=== PATIENT | female | born 1970 | race Caucasian/White ===

== ENCOUNTER 2023-04-25 10:03 | Inpatient (IN) | payer MEDICARE, OTHER ==
[~2023-04-25] VITALS: Ht 170.2 cm; Wt 79.1 kg
[2023-04-25] MEDS ORDERED: MIRTAZAPINE7.5 MG PO (12:26)
[2023-04-25] MEDS ORDERED: ZONISAMIDE50 MG PO (12:26)
[2023-04-25] MEDS ORDERED: PROMETHAZINE HC25 M1 PO (12:26)
[2023-04-25] MEDS ORDERED: CLONIDINE HCL0.1 MG PO (12:26)
[2023-04-25] MEDS ORDERED: BUTALBITAL-ACE1 EACH PO (12:27)
[2023-04-25 12:32] LABS: BASOPHILS 0.7 % (0-2); EOSINOPHILS 1.5 % (0-6); HEMATOCRIT 37.3 % (35.0-50.0); HEMOGLOBIN 12.4 g/dL (12.0-18.0); MCH 30.4 (27-36); MCHC 33.4 g/dl (30-36); MONOCYTES 4.9 % (0-12); NEUTROPHILS 61.9 % (39-80); PLATELET COUNT 388 K/uL (140-440); RDW 13.5 (10.5-15.0)
[2023-04-25 12:46] LABS: ALBUMIN 3.5 g/dL (3.4-5.0); ALBUMIN/GLOBULIN RATIO 0.88 (1.1-2.4); ANION GAP 14.9 (7-21); BILIRUBIN, TOTAL 0.4 ng/dL (0.2-1.0); BUN/CREATININE RATIO 15.71 (6.0-28.6); CALCIUM 9.8 mg/dL (8.5-10.1); CREATININE, SERUM 0.7 mg/dL (0.55-1.02); POTASSIUM 3.9 mmol/L (3.5-5.1); PROTEIN, TOTAL 7.5 g/dL (6.4-8.2)
[2023-04-25 15:51] VITALS: BP 113/65
[2023-04-25] MEDS ORDERED: BIOTIN5 MG PO (17:13)
[2023-04-25] MEDS ORDERED: VITAMIN D325 MCG PO (17:13)
[2023-04-25] MEDS ORDERED: FISH OIL 1,0001 EAC6 PO (17:14)
[2023-04-25 17:50] LABS: BILIRUBIN, URINE NEGATIVE (negative); BLOOD/HGB, URINE NEGATIVE (Negative); KETONE, URINE NEGATIVE (Negative); LEUK ESTERASE, URINE NEGATIVE (negative); NITRITE, URINE NEGATIVE (negative); PH, URINE 5.5 (5-7)
[2023-04-25 21:16] VITALS: BP 101/62
[2023-04-26 02:02] VITALS: BP 99/55
[2023-04-26 05:20] VITALS: BP 98/54
[2023-04-26 05:22] LABS: BASOPHILS 1.1 % (0-2); EOSINOPHILS 2.8 % (0-6); HEMATOCRIT 31.1 % (35.0-50.0); HEMOGLOBIN 10.7 g/dL (12.0-18.0); LYMPHOCYTES 36.7 % (24-44); MCH 31.1 (27-36); MCHC 34.6 g/dl (30-36); MONOCYTES 6.5 % (0-12); NEUTROPHILS 52.9 % (39-80); PLATELET COUNT 290 K/uL (140-440); RBC 3.46 M/ul (4.3-5.7); RDW 13.3 (10.5-15.0)
[2023-04-26 05:35] LABS: ANION GAP 10.1 (7-21); BUN/CREATININE RATIO 13.51 (6.0-28.6); CREATININE, SERUM 0.74 mg/dL (0.55-1.02); POTASSIUM 4.1 mmol/L (3.5-5.1)
[2023-04-26 09:27] VITALS: BP 104/68
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
[2023-04-26 13:22] VITALS: BP 96/53
[2023-04-26 17:35] VITALS: BP 109/68
[2023-04-26 19:49] VITALS: BP 111/65
[2023-04-27 05:15] LABS: BASOPHILS 1.5 % (0-2); EOSINOPHILS 2.8 % (0-6); HEMATOCRIT 30.3 % (35.0-50.0); HEMOGLOBIN 10.5 g/dL (12.0-18.0); LYMPHOCYTES 37.3 % (24-44); MCH 30.5 (27-36); MCHC 34.5 g/dl (30-36); MCV 88.3 fl (81-99); MONOCYTES 6.3 % (0-12); NEUTROPHILS 52.1 % (39-80); PLATELET COUNT 316 K/uL (140-440); RBC 3.43 M/ul (4.3-5.7)
[2023-04-27 06:17] VITALS: BP 117/68
[2023-04-27 10:06] VITALS: BP 105/65
[2023-04-27 14:37] VITALS: BP 103/61
[2023-04-27 18:24] VITALS: BP 117/61
[2023-04-27 19:59] VITALS: BP 115/63
[2023-04-28 05:48] VITALS: BP 124/78
[2023-04-28 08:11] VITALS: BP 117/75
[2023-04-28 09:38] VITALS: BP 111/69
[2023-04-28 09:56] LABS: BASOPHILS 1.1 % (0-2); EOSINOPHILS 3.1 % (0-6); HEMATOCRIT 33.2 % (35.0-50.0); HEMOGLOBIN 11.1 g/dL (12.0-18.0); LYMPHOCYTES 42.3 % (24-44); MCH 30.3 (27-36); MCHC 33.3 g/dl (30-36); MCV 90.9 fl (81-99); NEUTROPHILS 46.5 % (39-80); PLATELET COUNT 360 K/uL (140-440); RBC 3.65 M/ul (4.3-5.7)
[2023-04-28 10:18] LABS: ALBUMIN 2.9 g/dL (3.4-5.0); ALBUMIN/GLOBULIN RATIO 0.94 (1.1-2.4); ANION GAP 9.9 (7-21); BILIRUBIN, TOTAL 0.1 ng/dL (0.2-1.0); BUN/CREATININE RATIO 13.23 (6.0-28.6); CALCIUM 9.1 mg/dL (8.5-10.1); CREATININE, SERUM 0.68 mg/dL (0.55-1.02); MAGNESIUM 1.9 mg/dL (1.8-2.4); POTASSIUM 3.9 mmol/L (3.5-5.1)
[2023-04-28 13:44] VITALS: BP 102/66
--- NOTE | 2023-04-28 17:10 | EKG ---
[facility] [address] [facility] [place] [address] Signed Marked sinus bradycardia Abnormal ECG No previous ECGs available Confirmed by Erma Pathak MD () on 04/28/2023 5:10:05 PM Electronically Signed By: ERMA PATHAK MD 04/28/23 1710 PATIENT NAME: GAMAL ALLANTCHERSHELDON Electrocardiogram DATE OF : [birth year] PHYSICIAN: ERMA PATHAK MD REPORT #: [id number] REPORT IS CONFIDENTIAL AND NOT TO BE RELEASED WITHOUT AUTHORIZATION
[2023-04-28 17:56] VITALS: BP 121/73
--- NOTE | 2023-04-28 21:09 | EKG ---
[facility] [address] [facility] [place] [address] Signed Marked sinus bradycardia Abnormal ECG When compared with ECG of 28-APR-2023 07:52, No significant change was found Confirmed by Erma Pathak MD () on 04/28/2023 9:09:28 PM Electronically Signed By: ERMA PATHAK MD 04/28/232108 PATIENT NAME: SHELDON READ Electrocardiogram DATE OF : 68 PHYSICIAN: ERMA PATHAK MD REPORT #: [id number] REPORT IS CONFIDENTIAL AND NOT TO BE RELEASED WITHOUT AUTHORIZATION
[2023-04-28 22:13] VITALS: BP 115/78
[2023-04-29 06:03] VITALS: BP 120/65
[2023-04-29 09:30] VITALS: BP 116/72
[2023-04-29 13:23] VITALS: BP 119/68
[2023-04-29 17:55] VITALS: BP 108/63
[2023-04-29 20:04] VITALS: BP 111/68
[2023-04-30 05:47] VITALS: BP 135/69
[2023-04-30 09:10] VITALS: BP 117/74
[2023-04-30 14:29] VITALS: BP 125/88
[2023-04-30 18:20] VITALS: BP 116/81
[2023-04-30 20:15] VITALS: BP 111/71
[2023-05-01 06:27] VITALS: BP 125/77
[2023-05-01 08:53] VITALS: BP 123/74
[2023-05-01 09:40] VITALS: BP 116/75
[2023-05-01] MEDS ORDERED: LEVOFLOXACIN500 MG PO (12:49)
[2023-05-01] MEDS ORDERED: METRONIDAZOLE250 MG PO (12:50)
[2023-05-01] MEDS ORDERED: ACETAMINOPHEN500 MG PO (12:50)
[2023-05-01 13:30] VITALS: BP 102/70
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
== END 2023-05-01 14:50 | disposition home or self-care (01) | DRG 392 ==
LOC: ED 10:03 → MS 14:38
PROVIDERS: Emergency Medicine; ADMIT Surgery; ATTEND Surgery
DX: K57.20 Diverticulitis of large intestine with perforation and abscess without bleeding (principal); I10 Essential (primary) hypertension; G43.909 Migraine, unspecified, not intractable, without status migrainosus; R00.1 Bradycardia, unspecified; I95.9 Hypotension, unspecified; K44.9 Diaphragmatic hernia without obstruction or gangrene; G89.4 Chronic pain syndrome; Z87.820 Personal history of traumatic brain injury; Z87.19 Personal history of other diseases of the digestive system; Z98.51 Tubal ligation status; Z88.8 Allergy status to other drugs, medicaments and biological substances; Z88.2 Allergy status to sulfonamides; Z88.0 Allergy status to penicillin; Z79.899 Other long term (current) drug therapy; Z98.890 Other specified postprocedural states; Z11.52 Encounter for screening for COVID-19
CPT/HCPCS: 36415; 74177; 80048; 80053; 81003; 83605; 83735; 84484; 85025; 93005; 93010; A9270; C9803; J1170; J1885; J1956; J2270; J2405; J7121; Q9967; U0002

== ENCOUNTER 2023-08-20 05:44 | Day surgery (SDC) | payer MEDICARE, OTHER ==
[2023-08-14 11:39] VITALS: BP 123/66
[~2023-08-20] VITALS: Ht 170.2 cm; Wt 79.5 kg
[~2023-08-20 05:44] MED LIST: ACETAMINOPHEN500 MG PO; BIOTIN5 MG PO; BUTALBITAL-ACE1 EACH PO; CLONIDINE HCL0.1 MG PO; FISH OIL 1,0001 EAC6 PO; LEVOFLOXACIN500 MG PO; METRONIDAZOLE250 MG PO; MIDAZOLAM HCL 5 MG/5 ML VIAL IV PRN; MIRTAZAPINE7.5 MG PO; PROMETHAZINE HC25 M1 PO; VITAMIN D325 MCG PO; ZONISAMIDE50 MG PO; fentaNYL citrate 100 MCG/2 ML VIAL IV PRN
[2023-08-20 05:57] VITALS: BP 105/54
[2023-08-20] MEDS ORDERED: LIDOCAINE HCL 1% 5 ML SDV INJ ONE (07:00)
[2023-08-20] MEDS ORDERED: IBLOOD GLUCOSE TEST STRIP 1 EA TEST VI PRN (07:00)
[2023-08-20] MEDS ORDERED: LACTATED RINGER'S 1,000 ML IV SCH (07:00)
[2023-08-20] MEDS ORDERED: LIDOCAINE HCL 2% 5 ML SDV ONE (07:19)
[2023-08-20] MEDS ORDERED: propofoL 200 MG/20 ML VIAL ONE (07:19)
[2023-08-20] MEDS ORDERED: CEFAZOLIN SOD 1,000 MG/10 ML VIAL ONE (07:27)
--- NOTE | 2023-08-20 08:10 | NUR ---
08/20/23 0810 Nell Mondragon PT TO PACU SLEEPY BUT AROUSABLE, DENIES PAIN AND NAUSEA.
[2023-08-20 08:33] VITALS: BP 110/74
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
--- NOTE | 2023-08-24 11:56 | PATH ---
[facility] [address] [place], [place] [address] Signed SPECIMEN(S): A RECTAL POLYP AT 6 CM SPECIMEN(S): B SIGMOID POLYP AT 32 CM SPECIMEN SOURCE: A. RECTAL POLYP AT 6 CM B. SIGMOID POLYP AT 32 CM CLINICAL HISTORY: Diverticulosis; Hx of polyps FINAL PATHOLOGIC DIAGNOSIS: A. Rectum, 6 cm, polypectomy: - Hyperplastic polyp B. Colon, sigmoid at 32 cm, polypectomy: - Inflammatory-type polyp BRP MICROSCOPIC EXAMINATION: Histologic sections of all submitted blocks are examined by light microscopy. These findings, together with the gross examination, support the pathologic diagnosis. GROSS DESCRIPTION: A. The specimen, labeled and designated "Moon Mckay, rectal polyp at 6 cm," is received in formalin and consists of one chapa soft tissue fragment, 0.1 cm. Entirely submitted in (A1). B. The specimen, labeled and designated "Moon Mckay, sigmoid colon polyp at 42 cm," is received in formalin and consists of one chapa soft tissue fragment, 0.1 cm. Entirely submitted in (B1). JS (under the direct supervision of a pathologist) The Gross Description was prepared using a voice recognition system. The report was reviewed for accuracy; however, sound-alike word errors, addition and/or deletions may occur. If there is any question about this report, please contact Client Services. ADDITIONAL NOTES: Immunohistochemical and/or in situ hybridization studies if performed in this case included appropriate positive controls that reacted as expected. This test was developed and its performance characteristics determined by [facility]. It has not been cleared or approved by the U.S. Food and Drug Administration. The FDA has determined that PATIENT NAME: SHELDON READ PATHOLOGY DATE OF : 68 REPORT #: [id number] PHYSICIAN: DEEPIKA MASSEY PCP: JACQUELINE PETERSON PA-C REPORT IS CONFIDENTIAL AND NOT TO BE RELEASED WITHOUT AUTHORIZATION [facility] [address] [place], [place] [address] Signed such clearance or approval is not necessary. This test is used for clinical purposes. It should not be regarded as investigational or for research. [facility] is certified under the Clinical Laboratory Improvement Amendments of 1988 (CLIA) as qualified to perform high complexity clinical laboratory testing. PERFORMING LABORATORY: Technical component was performed by [facility], [address] [place] [address] (CLIA# [id number]). Professional interpretation was performed by [facility] - [address] [id number] Diagnostician: Amrit Harley MD Pathologist Electronically Signed 08/24/2023 Copies: ~ PATIENT NAME: SHELDON READ PATHOLOGY DATE OF : [birth year] REPORT #: [id number] PHYSICIAN: DEEPIKA MASSEY PCP: JACQUELINE PETERSON PA-C REPORT IS CONFIDENTIAL AND NOT TO BE RELEASED WITHOUT AUTHORIZATION
== END 2023-08-20 08:45 | disposition home or self-care (01) ==
LOC: DS 05:44
PROVIDERS: ATTEND Colon & Rectal Surgery
PROC: 0DBN8ZZ Excision of Sigmoid Colon, Via Natural or Artificial Opening Endoscopic (ICD-10-PCS; 2023-08-20)
PROC: 0DBP8ZZ Excision of Rectum, Via Natural or Artificial Opening Endoscopic (ICD-10-PCS; principal; 2023-08-20 07:30)
DX: K63.5 Polyp of colon (principal); K57.30 Diverticulosis of large intestine without perforation or abscess without bleeding; K62.1 Rectal polyp; K64.8 Other hemorrhoids
CPT/HCPCS: 00811; J0690; J2001; J2704; J7121

== ENCOUNTER 2024-06-07 07:26 | Day surgery (SDC) | payer MEDICARE, OTHER ==
[~2024-06-07] VITALS: Ht 165.1 cm; Wt 82.7 kg
[~2024-06-07 07:26] MED LIST changes: +IBLOOD GLUCOSE TEST STRIP 1 EA TEST VI PRN; +LACTATED RINGER'S 1,000 ML IV SCH; +LIDOCAINE HCL 1% 5 ML SDV INJ ONE; +LIDOCAINE HCL 4% 50 ML BTL TOP SCH
[2024-06-07 07:40] VITALS: BP 111/70
[2024-06-07] MEDS ORDERED: OMEPRAZOLE20 MG PO (07:44)
[2024-06-07] MEDS ORDERED: fentaNYL citrate 100 MCG/2 ML VIAL ONE (08:23)
[2024-06-07] MEDS ORDERED: MIDAZOLAM HCL 5 MG/5 ML VIAL ONE (08:23)
--- NOTE | 2024-06-07 09:59 | NUR ---
06/07/24 0959 Brea Mike 0915 PT ARRIVED IN PACU SLEEPY. 0932 DR AT BEDSIDE. ALL QUESTIONS ANSWERED. 0945 SLEEPING. REU. [id number] SITTING UP IN BED SIPPING ON WATER. NO C/O'S. DC INSTRUCTIONS GIVEN.
[2024-06-07 10:02] VITALS: BP 104/72
--- NOTE | 2024-06-07 18:17 | OR ---
[facility] [address], [place] [address] Signed DATE OF OPERATION: 06/07/2024 SURGEON: Savannah De Oliveira MD PREOPERATIVE DIAGNOSIS: Persistent upper abdominal pain (known history of diverticular disease), currently asymptomatic. POSTOPERATIVE DIAGNOSES: 1. Ulcerative distal esophagitis without associated hiatal hernia. 2. Bile within stomach. PROCEDURE: Esophagogastroduodenoscopy with biopsy. ANESTHESIA: Intravenous sedation; fentanyl 100 mcg and Versed 4 mg. INDICATION: This 53-year-old white woman is a patient of KIRTI Amado. She is known to have diverticular disease and has had colonoscopy with polypectomy by Dr. Abelino Don in the past. She has had persistent abdominal pain despite taking omeprazole 20 mg daily. She is admitted at this time to undergo upper endoscopy to better characterize this problem. She understands the risk of bleeding, infection, and perforation. FINDINGS: Surprisingly significant distal esophageal inflammation was noted including some ulceration. Strangely, there was no evidence of hiatal hernia or dysfunction of the flap valve. There was some bile within the stomach and a small gastric polyp or two, one of which was excised. CLOtest was negative 15 minutes postprocedure. The duodenum appeared normal. PROCEDURE IN DETAIL: The patient was brought to the endoscopy suite and given topical lidocaine hypopharyngeal anesthesia and placed in the lateral decubitus position. She was given intravenous sedation to the point of slurred speech and nystagmus. A bite block was placed. Full cardiopulmonary monitoring was maintained. An Olympus video upper endoscope was passed in the hypopharynx. The vocal cords appeared normal. Scope was easily passed in the esophagus. The esophagus was normal except in the distal portion where there was an inflammatory exudate and distal esophagitis far more significant than Electronically Signed By: SAVANNAH DE OLIVEIRA MD 06/07/24 1817 PATIENT NAME: SHELDON READ OPERATIVE REPORT DATE OF : 68 REPORT #: [id number] PHYSICIAN: SAVANNAH DE OLIVEIRA MD PCP: RHINA GONZALEZ PA-C REPORT IS CONFIDENTIAL AND NOT TO BE RELEASED WITHOUT AUTHORIZATION [facility] [address], [place] [address] Signed what have been expected. There is no actual stricture or Pina's epithelium. The scope was passed to the stomach which was insufflated with air. Rugal folds were normal, though there was some bilious fluid within the stomach. Pylorus was normal. Scope was passed through into the duodenum. Second and 3rd portions appeared normal as did the duodenum. Biopsies were obtained to assess for celiac disease. The scope was withdrawn and biopsies taken of the antrum for both PALOMA and pathologic testing. Retroflexed view showed an intact flap valve. No sign of hiatal hernia. The scope was carefully withdrawn to the distal esophagus where photographs were taken and biopsies obtained. There was no sign of stricture or Pina's epithelium. Further withdrawal showed reasonably normal mid esophagus and the proximal esophagus was normal also. The scope was removed and the patient was taken to the recovery room in good condition. CONCLUDING DIAGNOSES: 1. Distal esophagitis. Small gastric polyp which has been excised. 2. No evidence of hiatal hernia though there is some bile within the stomach also. PLAN: We will double her dose on omeprazole 20 mg to be two tablets p.o. daily and initiate Carafate 1 g slurry (pill dissolved in water) swallowed q.i.d. We will see her back in the office in 4 to 6 weeks. Savannah De Oliveira MD JM/MODL /[id number] cc: Rhina Gonzalez PA-C Copies: RHINA GONZALEZ PA-C ~ Electronically Signed By: SAVANNAH DE OLIVEIRA MD 06/07/24 1817 PATIENT NAME: SEHLDON READ OPERATIVE REPORT DATE OF : 68 REPORT #: [id number] PHYSICIAN: SAVANNAH DE OLIVEIRA MD PCP: RHINA GONZALEZ PA-C REPORT IS CONFIDENTIAL AND NOT TO BE RELEASED WITHOUT AUTHORIZATION
--- NOTE | 2024-06-10 12:26 | PATH ---
[facility] [address] [place], [place] [address] Signed SPECIMEN(S): A DUODENAL BIOPSY SPECIMEN(S): B ANTRUM BIOPSY SPECIMEN(S): C STOMACH POLYP SPECIMEN(S): D LOWER ESOPHAGEAL BIOPSY SPECIMEN(S): E MIDDLE ESOPHAGEAL BIOPSY SPECIMEN SOURCE: A. DUODENAL BIOPSY B. ANTRUM BIOPSY C. STOMACH POLYP D. LOWER ESOPHAGEAL BIOPSY E. MIDDLE ESOPHAGEAL BIOPSY CLINICAL HISTORY: Pre-: Pain, pressure, nausea, some dysphagia. Post: Distal esophagitis and gastric polyp. FINAL PATHOLOGIC DIAGNOSIS: A. Duodenal biopsy: - Benign duodenal mucosa, negative for specific diagnostic abnormality. B. Antrum biopsy: - Benign gastric mucosa with superficial mild chronic gastritis. - Helicobacter pylori immunostain is negative for organisms. - Fragment of benign duodenal mucosa, negative for specific diagnostic abnormality. C. Stomach polyp: - Polypoid gastric-type mucosa with slight hyperplastic features and focal reactive changes. - Negative for evidence of Helicobacter organisms on routine HE-stained sections. D. Lower esophageal biopsy: - Esophageal mucosa with focal ulceration. - Glandular mucosa negative for specialized intestinal metaplasia. - A PAS with diastase stain is performed with appropriate controls on block D1 and is negative for fungal organisms. E. Mid esophageal biopsy: - Benign esophageal epithelium, negative for increased epithelial eosinophils. JVR:smn MICROSCOPIC EXAMINATION: Histologic sections of all submitted blocks are examined by light microscopy. PATIENT NAME: GAMAL ALLANTCHERSHELDON KAMILA PATHOLOGY DATE OF : 68 REPORT #: [id number] PHYSICIAN: DEEPIKA MASSEY PCP: JACQUELINE PETERSON PA-C REPORT IS CONFIDENTIAL AND NOT TO BE RELEASED WITHOUT AUTHORIZATION [facility] [address] [place], [place] [address] Signed These findings, together with the gross examination, support the pathologic diagnosis. A Helicobacter pylori immunostain is performed with appropriate positive and negative controls on block B1 and is negative for organisms. A PAS with diastase stain is performed with appropriate controls on block D1 and is negative for fungal organisms. JVR:smn GROSS DESCRIPTION: A. The specimen, labeled and designated "Moon Mckay, S, duodenal biopsy," is received in formalin and consists of one chapa soft tissue fragment, 0.3 cm. Entirely submitted in (A1). B. The specimen, labeled and designated "Moon Mckay, S, antrum biopsy," is received in formalin and consists of three chapa soft tissue fragments, ranging from 0.2-0.4 cm. Entirely submitted in (B1). C. The specimen, labeled and designated "Moon Mckay, S, stomach polyp," is received in formalin and consists of two chapa soft tissue fragments, ranging from 0.2-0.3 cm. Entirely submitted in (C1). D. The specimen, labeled and designated "Moon Mckay, S, lower esophageal biopsy," is received in formalin and consists of five chapa soft tissue fragments, ranging from 0.2-0.4 cm. Entirely submitted in (D1). E. The specimen, labeled and designated "Moon Mckay, S, middle esophageal biopsy," is received in formalin and consists of six chapa soft tissue fragments, ranging from 0.2-0.4 cm. Entirely submitted in (E1). AB (under the direct supervision of a pathologist) The Gross Description was prepared using a voice recognition system. The report was reviewed for accuracy; however, sound-alike word errors, addition and/or deletions may occur. If there is any question about this report, please contact Client Services. ADDITIONAL NOTES: Immunohistochemical and/or in situ hybridization studies were performed on this case with the appropriate positive controls that react as expected. This test was developed and its performance characteristics determined by [employer]. It has not been cleared or approved by the U.S. Food and Drug Administration. The FDA has determined that such clearance or approval is not necessary. This test is used for clinical purposes. It should not be regarded PATIENT NAME: SHELDON READ PATHOLOGY DATE OF : 68 REPORT #: [id number] PHYSICIAN: DEEPIKA MASSEY PCP: JACQUELINE PETERSON PA-C REPORT IS CONFIDENTIAL AND NOT TO BE RELEASED WITHOUT AUTHORIZATION [address] [address] Signed as investigational or for research. [employer] is certified under the Clinical Laboratory Improvement Amendments of 1988 (CLIA) as qualified to perform high complexity clinical laboratory testing. This assay has not been validated for specimens that have been decalcified. PERFORMING LABORATORY: Technical component was performed by [facility], [address] [place] [id number] (CLIA# [id number]). Professional interpretation was performed by [facility], [address] [place] [address]., [place] [address] (CLIA#: [id number]). Diagnostician: Manoj Robles MD Pathologist Electronically Signed 06/10/2024 Copies: ~ PATIENT NAME: SHELDON READ PATHOLOGY DATE OF : 68 REPORT #: [id number] PHYSICIAN: DEEPIKA PATHOLOGY PCP: JACQUELINE PETERSON PA-C REPORT IS CONFIDENTIAL AND NOT TO BE RELEASED WITHOUT AUTHORIZATION
== END 2024-06-07 10:14 | disposition home or self-care (01) ==
LOC: DS 07:26 → OPS 07:26 → DS 08:30 → OPS 08:30
PROVIDERS: ATTEND Surgery
PROC: 0DB68ZX Excision of Stomach, Via Natural or Artificial Opening Endoscopic, Diagnostic (ICD-10-PCS; 2024-06-07)
PROC: 0DB98ZX Excision of Duodenum, Via Natural or Artificial Opening Endoscopic, Diagnostic (ICD-10-PCS; principal; 2024-06-07 08:30)
DX: K29.50 Unspecified chronic gastritis without bleeding (principal); K22.10 Ulcer of esophagus without bleeding; K21.00 Gastro-esophageal reflux disease with esophagitis, without bleeding; K31.7 Polyp of stomach and duodenum; Z79.899 Other long term (current) drug therapy; Z88.0 Allergy status to penicillin; Z88.1 Allergy status to other antibiotic agents; Z88.8 Allergy status to other drugs, medicaments and biological substances
CPT/HCPCS: 88305; 88312; 88342; 99153; G0500; J2250; J3010; J7121

== ENCOUNTER 2024-06-21 17:04 | Emergency (ER) | payer MEDICARE, OTHER ==
[~2024-06-21] VITALS: Ht 165.1 cm; Wt 89.9 kg
--- NOTE | ~2024-06-21 | EKG ---
[facility] [address] [facility], [place] [address] Draft EKG completed, results pending confirmation PATIENT NAME: SHELDON READ Electrocardiogram DATE OF : 68 PHYSICIAN: PRELIMINARY REPORT #: [id number] REPORT IS CONFIDENTIAL AND NOT TO BE RELEASED WITHOUT AUTHORIZATION
[~2024-06-21 17:04] MED LIST changes: -IBLOOD GLUCOSE TEST STRIP 1 EA TEST VI PRN; -LACTATED RINGER'S 1,000 ML IV SCH; -LIDOCAINE HCL 1% 5 ML SDV INJ ONE; -LIDOCAINE HCL 4% 50 ML BTL TOP SCH; -MIDAZOLAM HCL 5 MG/5 ML VIAL IV PRN; +OMEPRAZOLE20 MG PO; -fentaNYL citrate 100 MCG/2 ML VIAL IV PRN
[2024-06-21] MEDS ORDERED: MORPHINE SULFATE 4 MG/ML VIAL IV ONE (19:45)
[2024-06-21] MEDS ORDERED: SODIUM CHLORIDE 0.9% 1,000 ML IV ONE (19:45)
[2024-06-21] MEDS ORDERED: ondansetron HCL 4 MG/2 ML VIAL IV ONE (19:45)
[2024-06-21 19:51] LABS: BASOPHILS 1.3 % (0-2); EOSINOPHILS 2.4 % (0-6); HEMATOCRIT 39.6 % (35.0-50.0); HEMOGLOBIN 14.3 g/dL (12.0-18.0); LYMPHOCYTES 44.9 % (24-44); MCH 32.7 (27-36); MCV 90.9 fl (81-99); MONOCYTES 4.8 % (0-12); NEUTROPHILS 46.6 % (39-80); PLATELET COUNT 270 K/uL (140-440); RBC 4.36 M/ul (4.3-5.7); RDW 13.2 (10.5-15.0)
[2024-06-21 19:59] LABS: ALBUMIN 3.9 g/dL (3.4-5.0); ALBUMIN/GLOBULIN RATIO 1.11 (1.1-2.4); ANION GAP 18.6 (7-21); BILIRUBIN, TOTAL 0.5 ng/dL (0.2-1.0); CALCIUM 9.8 mg/dL (8.5-10.1); CREATININE, SERUM 0.75 mg/dL (0.55-1.02); POTASSIUM 3.6 mmol/L (3.5-5.1); PROTEIN, TOTAL 7.4 g/dL (6.4-8.2)
[2024-06-21 22:07] LABS: BILIRUBIN, URINE NEGATIVE (negative); BLOOD/HGB, URINE NEGATIVE (Negative); KETONE, URINE NEGATIVE (Negative); LEUK ESTERASE, URINE NEGATIVE (negative); NITRITE, URINE NEGATIVE (negative)
[2024-06-21] MEDS ORDERED: ONDANSETRON ODT8 MG PO (23:04)
[2024-06-21] MEDS ORDERED: TRAMADOL HCL50 MG PO (23:04)
[2024-06-21] MEDS ORDERED: TRAMADOL HCL 50 MG HOME.PACK PO ONE (23:15)
[2024-06-21] MEDS ORDERED: ONDANSETRON 4 MG HOME.PACK SL ONE (23:15)
[2024-06-21 23:28] VITALS: BP 108/73
== END 2024-06-21 23:40 | disposition home or self-care (01) ==
LOC: ED 17:04
PROVIDERS: Family Medicine
DX: R10.32 Left lower quadrant pain (principal); R11.0 Nausea; Z88.8 Allergy status to other drugs, medicaments and biological substances; Z88.2 Allergy status to sulfonamides; Z88.0 Allergy status to penicillin; Z79.899 Other long term (current) drug therapy
CPT/HCPCS: 36415; 74177; 80053; 81003; 83690; 84484; 85025; 96361; 96375; 99284-25; A9270; J2270; J2405; J7030; Q9967

== ENCOUNTER 2024-08-13 11:04 | Inpatient (IN) | payer MEDICARE, OTHER ==
[~2024-08-13] VITALS: Ht 165.1 cm; Wt 90.9 kg
[~2024-08-13 11:04] MED LIST changes: +ONDANSETRON ODT8 MG PO; +TRAMADOL HCL50 MG PO
[2024-08-18] MEDS ORDERED: CARAFATE1 GM PO (10:10)
[2024-08-18 10:16] VITALS: BP 114/82
[2024-08-23] MEDS ORDERED: ONE DAILY WOME1 EAC1 PO (11:20)
[2024-08-23] MEDS ORDERED: PROMETHAZINE HC25 M1 PO (11:20)
[2024-08-23] MEDS ORDERED: EMGALITY120 MG/1 M SUB-Q (11:20)
[2024-08-23] MEDS ORDERED: MIRTAZAPINE7.5 MG PO (11:20)
[2024-08-23] MEDS ORDERED: DICYCLOMINE HCL20 MG PO (11:20)
[2024-08-27] MEDS ORDERED: LACTATED RINGER'S 1,000 ML IV SCH ×2 (05:00→15:30)
[2024-08-27] MEDS ORDERED: metroNIDAZOLE/SODIUM CHLORIDE 500 MG/100 ML PIGGYBACK IV SCH ×2 (07:00→15:30)
[2024-08-27] MEDS ORDERED: CEFAZOLIN SODIUM 2 GM/20 ML SYR IV SCH (07:00)
[2024-08-27] MEDS ORDERED: IBLOOD GLUCOSE TEST STRIP 1 EA TEST VI PRN ×2 (07:00→14:15)
[2024-08-27] MEDS ORDERED: HEParin SOD (PORCINE) 5,000 UNIT/ML SDV SUB-Q SCH (07:00)
[2024-08-27] MEDS ORDERED: LIDOCAINE HCL 1% 5 ML SDV INJ ONE (07:00)
[2024-08-27 08:02] VITALS: BP 96/72
[2024-08-27] MEDS ORDERED: propofoL 200 MG/20 ML VIAL ONE (08:44)
[2024-08-27] MEDS ORDERED: ondansetron HCL 4 MG/2 ML VIAL ONE (08:44)
[2024-08-27] MEDS ORDERED: HYDROmorphone HCL 2 MG/ML VIAL ONE (08:44)
[2024-08-27] MEDS ORDERED: ROCURONIUM BROMIDE 50 MG/5 ML SYR ONE ×2 (08:44→12:03)
[2024-08-27] MEDS ORDERED: KETAMINE in NS 50 MG/5 ML SYR ONE (08:44)
[2024-08-27] MEDS ORDERED: LIDOCAINE HCL 2% 5 ML SDV ONE ×2 (08:44→13:58)
[2024-08-27] MEDS ORDERED: ACETAMINOPHEN 1,000 MG/100 ML VIAL ONE (08:44)
[2024-08-27] MEDS ORDERED: DEXAMETHASONE SOD PHOS 4 MG/ML VIAL ONE ×2 (08:44→14:20)
[2024-08-27] MEDS ORDERED: fentaNYL citrate 100 MCG/2 ML VIAL ONE (08:44)
[2024-08-27] MEDS ORDERED: dexmedeTOMIDine HCl 200 MCG/2 ML VIAL ONE (08:44)
[2024-08-27] MEDS ORDERED: MAGNESIUM SULFATE 1 GM/2 ML VIAL ONE ×2 (08:44→13:58)
[2024-08-27] MEDS ORDERED: LIDOCAINE HCL 4% 5 ML AMP ONE (08:45)
[2024-08-27] MEDS ORDERED: SODIUM CHLORIDE 0.9% 40 ML IV ONE ×3 (08:48→14:19)
[2024-08-27] MEDS ORDERED: SODIUM CHLORIDE 0.9% 20 ML IV ONE (08:55)
--- NOTE | 2024-08-27 10:06 | NUR ---
LE 1000: PT AND UPDATED ON A DELAY. PT IS GIVEN WARM BLANKETS.
--- NOTE | 2024-08-27 11:16 | NUR ---
VISITED DURING SPIRITUAL CARE ROUNDS. PT EXPRESSED SITUATIONALLY APPROPRIATE EMOTIONS; FRUSTRATION WTIH AND UNDERSTANDING OF DELAY; NO IMMEDIATE NEEDS. POLICE CRIME SCENE TECHNICIAN PROVIDED SUPPORTIVE PRESENCE, HOSPITALITY, PRAYER, FACILITATED INTERACTION WITH THERAPY ANIMAL. PT EXPRESSED GRATITUDE.
[2024-08-27] MEDS ORDERED: ePHEDrine sulfate 50 MG/ML AMP ONE (12:07)
[2024-08-27] MEDS ORDERED: NALOXONE HCL 0.4 MG SYR IV PRN (14:15)
[2024-08-27] MEDS ORDERED: fentaNYL citrate 50 MCG/ML SDV IV PRN (14:15)
[2024-08-27] MEDS ORDERED: HYDROmorphone HCL 1 MG/ML SYR IV PRN (14:15)
[2024-08-27] MEDS ORDERED: KETOROLAC TROMETHAMINE 30 MG/ML VIAL IV PRN ×2 (14:15→15:30)
[2024-08-27] MEDS ORDERED: droPERidol 5 MG/2 ML VIAL IV PRN (14:15)
[2024-08-27] MEDS ORDERED: ondansetron HCL 4 MG/2 ML VIAL IV PRN (14:15)
[2024-08-27] MEDS ORDERED: Ropivacaine HCl 0.5% 30 ML VIAL ONE (14:19)
[2024-08-27] MEDS ORDERED: SUGAMMADEX SODIUM 200 MG/2 ML ML ONE (14:20)
[2024-08-27] MEDS ORDERED: ACETAMINOPHEN 1,000 MG/100 ML VIAL IV PRN (15:30)
[2024-08-27] MEDS ORDERED: CEFAZOLIN SODIUM 2 GM/20 ML SYR IV ONE (15:30)
--- NOTE | 2024-08-27 15:41 | NUR ---
08/27/24 1541 Sheets,Giselle 1528 PT ARRIVED TO PACU ON RA, SMALL AMOUNT OF SNORING NOTED. PT OPENS EYES SLIGHTLY TO TACTILE STIMULI AND EASILY FALLS BACK TO SLEEP WITH CONTINUED SNORING. 1532 2L NC PLACED DUE O2 SAT 88%, O2 INCREASED TO MID 90.
[2024-08-27] MEDS ORDERED: MIRTAZAPINE 15 MG TAB PO PRN (15:45)
[2024-08-27] MEDS ORDERED: TRAMADOL HCL 50 MG TAB PO PRN (15:45)
[2024-08-27 17:00] VITALS: BP 126/76
--- NOTE | 2024-08-27 17:05 | NUR ---
PT ARRIVES TO [facility] SURG ROOM 110 VIA STRETCHER. PT IS AWAKE, A&O X4. STATES PAIN IS 9/10, REQUESTING PAIN MEDICATION. VSS. PT FEELS HOT, FLUSHED, FAN PROVIDED, SHEETS REMOVED PER PT REQUEST. MIDLINE INTACT, DEZ DRAIN PRESENT WITH SCANT SEROSANG DRAINAGE. BRAY IN PLACE WITH CLEAR URINE. SCDS ON. BOWEL TONES ABSENT, TENDER. ORIENTED TO CALL LIGHT.
[2024-08-27] MEDS ORDERED: SEVOFLURANE 250 ML BTL INH ONE (17:11)
--- NOTE | 2024-08-27 17:31 | NUR ---
ATTEMPTED TO CALL MD FOR PRIMARY RN, PT REPORTS 9/10 PAIN MEDS, NO OTHER MEDS TO GIVE AT THIS TIME OTHER THAN TYLENOL. VM LEFT, AWAITING RETURN CALL.
[2024-08-27] MEDS ORDERED: BUTALB-ACETAMI1 EACH PO (17:36)
--- NOTE | 2024-08-27 17:51 | NUR ---
ATTEMPTED TO CALL MD FOR PRIMARY RN, FOR PAIN MEDICATIONS. PT STILL REPORTS PAIN 03/09. AWAITING RETURN CALL.
[2024-08-27] MEDS ORDERED: OMEPRAZOLE40 MG PO (17:54)
[2024-08-27 18:00] VITALS: BP 130/76
[2024-08-27] MEDS ORDERED: FISH OIL 1,0001 EAC6 PO (18:10)
[2024-08-27] MEDS ORDERED: VITAMIN D325 MCG PO (18:10)
--- NOTE | 2024-08-27 18:10 | NUR ---
MED REC COMPLETE
--- NOTE | 2024-08-27 18:15 | NUR ---
PT IN ROOM, TEARFUL, DISCUSSED WITH PT SPOKE WITH YENNIFER FOR PAIN MEDICAION JUST WAITING FOR MED TO BE VERIFIED WITH PHARMACY. PT UNDERSTANDING. CALL LIGHT IN REACH.
--- NOTE | 2024-08-27 18:21 | NUR ---
SPOKE WITH YENNIFER ON PAIN MEDICATION AND BRAY ORDER. VERBAL RECIEVED TO ORDER MORPHINE AND BRAY.
[2024-08-27] MEDS ORDERED: MORPHINE SULFATE 4 MG/ML VIAL IV PRN (18:30)
--- NOTE | 2024-08-27 18:58 | NUR ---
MORPHINE GIVEN FOR BACK/ABD PAIN. NO FURTHER NEEDS AT THIS TIME. CALL LIGHT IN REACH.
[2024-08-27 19:00] VITALS: BP 127/78
--- NOTE | 2024-08-27 19:15 | NUR ---
REPORT RECEIVED FROM LEXIE HEAD. pt LYING IN BED WITH EYES OPEN. CONTINEUES TO COMPLAIN OF PAIN. SPO2 91-92% ON RA. SCDS ON. IVF INFUSING WNL.
[2024-08-27 20:03] VITALS: BP 129/77
--- NOTE | 2024-08-27 20:13 | NUR ---
IN ROOM FOR POST OP VS. pt STIFF, LYING ON BACK, COMPLAINS OF PAIN ALL OVER 9/10. PRN OFIRMEV ADMINISTERED AND INFUSING WNL. EDUCATION PROVIDED REGARDING OPIODS POST OP, pt WISHES TO WAIT ON ADDITIONAL MEDICATION AT THIS TIME. FOLEDED BLANKET PROVIDED FOR pt TO BRACE ABDOMEN WITH MOVEMENT. ASSESSMENT COMPLETE. BRAY EMPTIED. CALL LIGHT IN REACH.
[2024-08-27 20:15] VITALS: BP 129/77
--- NOTE | 2024-08-27 20:57 | NUR ---
CALL LIGHT ANSWERED. pt COMPLAINS OF 10/10 PAIN IN ABDOMEN AND BACK. PRN MORPHINE ADMINISTERED AT THIS TIME. pt ASSISTED TO TURN TO LEFT SIDE. REPOSITIONS WITH BRACING ABDOMEN WITH FOLDED CHUX. CALL LIGHT AND PERSONAL SUPPLIES WITHIN REACH.
[2024-08-27] MEDS ORDERED: cloNIDine HCL 0.1 MG TAB PO SCH (21:00)
--- NOTE | 2024-08-27 22:15 | NUR ---
CALL LIGHT ANSWERED. pt COMPLAINS OF 8/10 PAIN IN BACK AND ABDOMEN. PRN MEDICATION ADMINISTERED. ICE PACKS PLACED. IN ROOM. CALL LIGHT AND PERSONAL SUPPLIES IN REACH. SCDS ON.
--- NOTE | 2024-08-27 23:02 | NUR ---
IN ROOM TO START ANTIBIOTIC, pt DROWSY. SPO2 WNL ON RA. CPOX IN PLACE. pt DENIES NEEDS.
[2024-08-28] VITALS (11 sets, daily range): BP systolic 102–139; BP diastolic 61–79
--- NOTE | 2024-08-28 00:50 | NUR ---
IV PUMP ALARMING, DISTAL OCCLUSION. TUBING STRAIGHTENED. pt DROWSY, STATES PAIN IS 8/10. PRN TORADOL ADMINISTERED. IVF INFUSING WNL. pt REPOSITIONS SELF IN BED. VSS. CALL LIGHT IN REACH.
--- NOTE | 2024-08-28 02:19 | NUR ---
IN ROOM TO HANG NEW IV BAG. IVF INFUSING WNL. pt DROWSY, DENIES NEEDS. CALL LIGHT IN REACH.
--- NOTE | 2024-08-28 03:19 | NUR ---
IV PUMP ALARMING, TUBING STRAIGHTENED, IVF INFUSING WNL. pt ASSISTED TO AMBULATE ONE LAP AROUND HALLWAY PAST SECOND NURSES STATION AND BACK TO ROOM. pt TOLERATED WELL. RATES PAIN 7/10. PRN PAIN MEDICATION ADMINISTERED PER REQUEST WITH CLEAR ENSURE. ASSESSMENT COMPLETE. BOWEL TONES ACTIVE, ABD SOFT, PRAKASH DRAIN WITH SANGUINOUS DRAINGE, SMALL AMT. BRAY DRAINING YELLOW URINE. BRAY CARE COMPLETE. pt RESTING IN BED WITH SCDS ON. CALL LIGHT AND PERSONAL SUPPLIES IN REACH.
--- NOTE | 2024-08-28 05:11 | NUR ---
IN ROOM FOR MORNING VS. VSS. BRAY EMPTIED, PRAKASH DRAIN EMPTIED 20 MLS SANGUINOUS DRAINAGE. IVF INFUSING WNL. pt DENIES NEEDS. CALL LIGHT IN REACH.
--- NOTE | 2024-08-28 05:25 | NUR ---
pt AMBULATED IN HALLWAY THIS SHIFT X 1 LAP. PAINFUL THROUGHOUT SHIFT IN ABDOMEN AND WITH CHRONIC BACK PAIN. IVF INFUSING ORDERED. DRESSING CDI MIDLINE. DEZ DRAIN WITH 20 MLS SANGUINOUS DRAINGE. BRAY DRAINING QUANTITY SUFFICIENT OUTPUT. MINIMAL PO INTAKE, CLEAR LIQUIDS.
[2024-08-28 05:42] LABS: BASOPHILS 0.1 % (0-2); HEMATOCRIT 36.4 % (35.0-50.0); HEMOGLOBIN 12.9 g/dL (12.0-18.0); LYMPHOCYTES 14.3 % (24-44); MCH 31.9 (27-36); MCHC 35.5 g/dl (30-36); MCV 89.8 fl (81-99); MONOCYTES 4.8 % (0-12); NEUTROPHILS 80.8 % (39-80); PLATELET COUNT 272 K/uL (140-440); RBC 4.06 M/ul (4.3-5.7); RDW 12.7 (10.5-15.0)
[2024-08-28 05:58] LABS: ANION GAP 12.8 (7-21); BUN/CREATININE RATIO 9.23 (6.0-28.6); CALCIUM 9.4 mg/dL (8.5-10.1); CREATININE, SERUM 0.65 mg/dL (0.55-1.02); POTASSIUM 3.8 mmol/L (3.5-5.1)
--- NOTE | 2024-08-28 06:53 | NUR ---
IN ROOM FOR ANTIBIOTIC ADMINISTRATION. pt AWAKE, DROWSY. ICE PACK PROVIDED FOR ABDOMEN. CONTINUES TO COMPLAIN OF PAIN. ASSISTED TO REPOSITION WITH PILLOW UNDER RIGHT HIP. IV ANTIBIOTIC INFUSING WNL. CALL LIGHT IN REACH.
--- NOTE | 2024-08-28 07:19 | NUR ---
RECIEVED MORNING REPORT FROM LEXIE HALE. PT IS AWAKE IN BED, DENIES NEEDS AT THIS TIME. CALL LIGHT IN REACH.
--- NOTE | 2024-08-28 08:51 | NUR ---
MORNING ASSESSMENT COMPLETE. PT IS AWAKE IN BED, STATES TOO PAINFUL TO GET UP AT THIS TIME. PAIN 9/10 IN THE ABD. PRN PAIN MEDICATION ADMINISTERED (PER EMAR). BOWEL TONES ACTIVE IN RLQ, HYPOACTIVE IN OTHER 4 QUADRANTS. DEZ DRAIN INTACT, SEROSANG DRAINGAGE, STRIPPED TUBING, PAINFUL FOR PATIENT, EDUCATED ON THE IMPORTANCE OF STRIPPING. MIDLINE DRESSING CDI. BRAY IN PLACE, URINE CLEAR YELLOW. CALL LIGHT IN REACH. DENIES NEEDS AT THIS TIME.
--- NOTE | 2024-08-28 09:10 | NUR ---
PT WAS SITTING UP IN BED EATING BREAKFAST. CALL LIGHT IN REACH.
--- NOTE | 2024-08-28 09:16 | NUR ---
PATIENT IN BED AT THIS TIME, ALPINE GUIDE CHARTED VITALS, EMPTIED CATH BAG. CALL LIGHT WITH IN REACH AND NOTHING ELSE NEEDED AT THIS TIME.
--- NOTE | 2024-08-28 10:41 | NUR ---
PT AWAKE IN BED, PAIN LEVEL 9/10, PRN PAIN MEDICATION ADMINSITERED. DENIES FURTHER NEEDS AT THIS TIME. CALL LIGHT IN REACH
[2024-08-28] MEDS ORDERED: HYDROmorphone HCL 1 MG/ML SYR IV PRN (11:00)
[2024-08-28] MEDS ORDERED: ACETAMINOPHEN 500 MG TAB PO PRN (11:00)
--- NOTE | 2024-08-28 11:02 | NUR ---
PATIENT IN BED AT THIS TIME, HAND SCRAPER CHARTED I&O'S, WE GOT PATIENT UP FOR A WALK. TOOK TWO LAPS AND CAME BACK TO ROOM, SHE IS IN THE CHAIR AT THIS TIME WITH CALL LIGHT WIHT IN REACH. NOTHING ELSE NEEDED AT THIS TIME.
--- NOTE | 2024-08-28 11:29 | NUR ---
PATIENT IN CHAIR AT THIS TIME. CAREER DEVELOPMENT MANAGER REMOVED BRAY CATHETER REQUESTED BY RN JENN, WITHIN NORMAL LIMITS. CALL LIGHT WITHIN REACH, NO FURTHER NEEDS AT THIS TIME.
--- NOTE | 2024-08-28 12:12 | OR ---
[facility] [address], [place] [address] Signed DATE OF OPERATION: 08/27/2024 SURGEON: Savannah De Oliveira MD PREOPERATIVE DIAGNOSIS: Chronic recurrent sigmoid diverticulitis. POSTOPERATIVE DIAGNOSIS: Chronic recurrent sigmoid diverticulitis. PROCEDURES: 1. Sigmoid resection with portion of rectum and side-to-end coloproctostomy (Rosado anastomosis). 2. Limited splenic flexure mobilization. ANESTHESIA: General endotracheal, Zeeshan Sampson, HIGHWAY MAINTENANCE CREW WORKER and postoperative bilateral TAP block. INDICATION: This 54-year-old woman is a patient of Rhina Gonzalez and has seen also MARA Benjamin. She has had chronic recurrent bouts of left lower abdominal pain with acute diverticulitis. She has recently undergone colonoscopy confirming diverticulosis but no evidence of stricture or neoplasm. Given her chronic recurrent bouts of diverticulitis related to sigmoid diverticular disease, resection has been offered. The risk of bleeding, infection, anastomotic failure, and other unforeseen complications were reviewed with her. She understands and wished to proceed. FINDINGS: The mesentery to the sigmoid and rectosigmoid was markedly thickened. There was no sign of neoplasm. Adhesions to the left adnexa and right adnexa and portions of uterus were noted, no doubt related to recurrent inflammation. Her gynecologic organs were completely normal. The left ureter was identified and unharmed. Dissection included the sigmoid as well as the proximal and mid rectum assuring resection below the pelvic peritoneum considering the extent of inflammatory change and thickening. A tension free side-to-end coloproctostomy (Rosado anastomosis) was accomplished. She tolerated the procedure well. Additionally noted was normal uterus, tubes and ovary for age. Examined small bowel was normal. The remaining colon was palpably normal. The liver and gallbladder were palpably Electronically Signed By: SAVANNAH DE OLIVEIRA MD 08/28/24 1212 PATIENT NAME: SHELDON READ OPERATIVE REPORT DATE OF : 68 REPORT #: [id number] PHYSICIAN: SAVANNAH DE OLIVEIRA MD PCP: RHINA GONZALEZ PA-C REPORT IS CONFIDENTIAL AND NOT TO BE RELEASED WITHOUT AUTHORIZATION [facility] [address], [place] [address] Signed normal. DESCRIPTION OF PROCEDURE: The patient was brought to the operating room, given a general endotracheal anesthetic. A Ortiz catheter was placed. She underwent a full bowel prep including oral antibiotics and preoperative iv antibiotics as well. A Ortiz catheter was placed. The abdomen was prepared with chlorhexidine solution and draped sterilely. An incision was made inferior to the umbilicus extending towards the symphysis pubis. Thick abdominal wall pannus was divided with blunt and electrocautery dissection. The midline fascia was incised. The abdomen entered without problem. Intra-abdominal inspection showed no sign of ascites or carcinomatosis. Palpation of the left lower quadrant revealed sigmoid with diverticulosis as well as an area of particular thickening of the rectosigmoid mesentery. Pelvic organs including left and right ovaries and tubes and of course the uterus were adherent with adhesions to the sigmoid and rectosigmoid area. The liver was palpated as normal. The gallbladder was somewhat distended but visually and palpably normal. The small bowel to the extent examined was normal. The Bookwalter retractor was affixed to the table and using the small ring, the small bowel was packed to the right side and superior aspect of the abdomen isolating well the left colon and sigmoid. Adhesions of the sigmoid to the pelvic organs were incised with meticulous care using electrocautery causing no bleeding. A Few mesenteric vessels were secured with hemoclips as necessary. The more proximal colon did have a few diverticula but was soft and completely uninflamed. The white line of Toldt was incised and limited splenic flexure mobilization undertaken including the left and sigmoid mesentery. Dissection was carried inferiorly to an area beyond where recurrent diverticular disease was noted. The mesentery of the distal left colon was incised with electrocautery. Sequential application of tonsil clamps to the mesenteric vessels was undertaken. The vascular pedicles were secured with 0 silk ties. A 60 mm DERRELL stapling device was used to transect the distal left colon in an area soft and normal. Further dissection of the sigmoid and rectosigmoid through the thick sigmoid mesentery was undertaken with blunt and electrocautery dissection and application of tonsil clamps as necessary. Given the thick nature of those pedicles, 0 silk suture was used to securely fix the vascular pedicles including the proximal and mid sigmoid mesentery. The left ureter was identified and unharmed. An area of transection below the area of recurrent inflammation was identified and the rectal mesentery scored more fully, ultimately isolating the middle to upper rectum. A right angle bowel clamp was applied to the mid portion of the rectum as was an occluding clamp proximal to that and the rectum was divided with angled prostate scissors. The specimen was opened on the Electronically Signed By: SAVANNAH DE OLIVEIRA MD 08/28/24 1212 PATIENT NAME: SHELDON READ OPERATIVE REPORT DATE OF : 68 REPORT #: [id number] PHYSICIAN: SAVANNAH DE OLIVEIRA MD PCP: RHINA GONZALEZ PA-C REPORT IS CONFIDENTIAL AND NOT TO BE RELEASED WITHOUT AUTHORIZATION [facility] [address], [place] [address] Signed back table and found to have no evidence of neoplasm, only diverticulosis. Further mobility of the left colon was undertaken with blunt and electrocautery dissection. At this point, the left colon was in a tension-free position in relation to the remaining rectum. A side-to-end coloproctostomy was undertaken in a two-layer technique of interrupted 3-[address] in the standard way. The mesenteric defect was secured with interrupted 3-0 silk sutures as well. Meticulous care was maintained to provide a good anastomosis. Both proximal and distal segments were widely viable and there appeared to be no leakage upon manipulation of the colon and rectum. Gloves were changed for all members of the operating team and irrigation was undertaken in the depths of the pelvis. Isolating laparotomy packs were removed and the sigmoid mesenteric defect was secured to the retroperitoneal mesentery with interrupted silk sutures. Through a left lower quadrant stab incision, a 7 mm flat Tyler drain was placed into the depths of the pelvis. The adnexal structures and the uterus all appeared healthy and normal. The omentum was applied over the lower abdominal contents and plans made for closure. The midline fascia was reapproximated with running bidirectional #1 PDS suture. Subcutaneous space was copiously irrigated with saline solution. Skin closed with running subcuticular 3-0 Vicryl. Steri-Strips were applied as was an Acticoat dressing. The drain was attached to bulb suction. At conclusion of the procedure, the coffee grower did provide for bilateral TAP block for postoperative analgesic benefit. It is anticipated that the patient will be extubated in the operating room to be taken to recovery room in good condition. Blood loss was estimated at 150 mL. Sponge, needle, and instrument counts reported as correct x3. Savannah De Oliveira MD JM/MODL /[id number] cc: GRETCHEN Fuentes FNP Electronically Signed By: SAVANNAH DE OLIVEIRA MD 08/28/24 1212 PATIENT NAME: SHELDON READ OPERATIVE REPORT DATE OF : 68 REPORT #: [id number] PHYSICIAN: SAVANNAH DE OLIVEIRA MD PCP: RHINA GONZALEZ PA-C REPORT IS CONFIDENTIAL AND NOT TO BE RELEASED WITHOUT AUTHORIZATION [facility] [address] [place] [address] [place], [place] [address] Signed Copies: RHINA GONZALEZ PA-C ~ Electronically Signed By: SAVANNAH DE OLIVEIRA MD 08/28/24 1212 PATIENT NAME: SHELDON READ OPERATIVE REPORT DATE OF : 68 REPORT #: [id number] PHYSICIAN: SAVANNAH DE OLIVEIRA MD PCP: RHINA GONZALEZ PA-C REPORT IS CONFIDENTIAL AND NOT TO BE RELEASED WITHOUT AUTHORIZATION
--- NOTE | 2024-08-28 12:50 | NUR ---
PT IN RECLINER, VISITORS AT BEDSIDE. CALL LIGHT IN REACH.
--- NOTE | 2024-08-28 14:00 | NUR ---
SITTING IN CHAIR, VISITORS AT BEDSIDE. CALL LIGHT IN REACH.
--- NOTE | 2024-08-28 15:05 | NUR ---
PT WALKED TWO LAPS AROUND THE DEPARTMENT W/O DIFFICULTY. PT IN BED, PER REQUEST. FRESH WATER PROVIDED. CALL LIGHT IN REACH.
--- NOTE | 2024-08-28 17:20 | NUR ---
PT IN BATHROOM, THIS RN IN ROOM PT COMPLAINS OF R HAND SWELLING, COLD TO THE TOUCH AND STATES SHE CAN NOT FEEL IT. IV IS LOCATED IN THAT HAND. LEXIE IVORY CALLED TO START US IV. THIS RN ATTEMPTED TWICE. NO SUCCESS.
--- NOTE | 2024-08-28 18:48 | NUR ---
PT AMBULATED DEPARTMENT X2 W/O DIFFICULTY, SBA WITH NICOLA LEBRON.
--- NOTE | 2024-08-28 19:18 | NUR ---
PRN PAIN MEDICATION (PER EMAR) GIVEN FOR 7/10 ABD AND RUE PAIN. R ARM ELEVATED ON PILLOW FOR COMFORT AND SWELLING FROM IV INFILTRATION. DENIES NEEDS AT THIS TIME. CALL LIGHT IN REACH
--- NOTE | 2024-08-28 20:04 | NUR ---
RECEIVED REPORT FROM JENN AM RN. PT IN BED, WATCHING TV. JENN, PLANS TO MEDICATE PATIENT FOR RIGHT LOWER ARM PAIN. REPORT WAS RECEIVED AT 1900. THIS RN INTO ROOM AT 1945, ASSISTED PT UP TO BATHROOM, SBA, PT ABLE TO GET SELF OUT OF BED, USING SIDERAILS. TO BATHROOM, VOIDED. OFFERED AND ACCEPTED TOOTHBRUSH AND WASH FACE, INDEPENDENTLY. BACK TO BED, SCD'S IN PLACE, CALL LIGHT WITHIN REACH, WELL ALL PERSONAL SUPPIES. ABD DRESSING INTACT, WITH NO SIGNS OF DRAINAGE.
--- NOTE | 2024-08-28 22:11 | NUR ---
HS MEDICATIONS ADMINISTERED PER MARS ADMINISTERED 2150; PT DENIES NEED FOR BATHROOM. REQUESTED PAIN MEDICATION. PRN IV PAIN MEDICATION FOR 8/10 ABD PAIN. DRESSING C/D/I. SCD'S IN PLACE.
[2024-08-29] VITALS (8 sets, daily range): BP systolic 129–138; BP diastolic 74–85
--- NOTE | 2024-08-29 01:29 | NUR ---
NEW BAG IV FLUIDS SCANNED AND INFUSING. PT STIRRED WHEN RN INTO ROOM, BUT DID NOT OPEN EYES. RESP AND EVEN AND UNLABORED.
--- NOTE | 2024-08-29 03:25 | NUR ---
ROUNDED ON PT. EYES CLOSED, RESP EVEN AND UNLABORED.
--- NOTE | 2024-08-29 06:06 | NUR ---
A/O, RA POSTOP FROM 08/27/24 SURGERY. LUNGS CLEAR, ABD DRESSING C/D/I, DEZ DRAIN WITH 20 ML SEROSANGUIOUS FLUID. PT WITH 8 PAIN THIS AM, PRN PO TAB GIVEN, WELL CLEAR ENSURE. PT ENDORSES SLEEP THIS NIGHT. PAIN DID NOT WAKE HER SHE STATED. STATED SHE "PASSED GAS", BS ACTIVE THIS AM. VOIDING WITHOUT DIFFICULTY, ONE PERSON ASSIST. SCD'S IN PLACE. IV PATENT WITH LR INFUSING.
--- NOTE | 2024-08-29 07:37 | NUR ---
RECIEVED SHIFT REPORT FROM LEXIE OZUNA. PT IS RESTING IN BED, EYES CLOSED. BREATHING EVEN AND UNLABORED. CALL LIGHT IN REACH.
--- NOTE | 2024-08-29 07:52 | NUR ---
PT AMBULATED TO USE ABRAN MITCHELL CNA IN ROOM TO ASSIST. PT IN RECLINER AT THIS TIME. THIS RN IN ROOM DISCUSSED WALKING AFTER BREAKFAST. CALL LIGHT IN REACH.
--- NOTE | 2024-08-29 10:03 | NUR ---
PATIENT UP TO BATHROOM FROM CHAIR, SBA. I&O'S CHARTED. AM CARE DONE. PATIENT NOW AMBULATING IN HALLWAY INDEPENDENTLY.
--- NOTE | 2024-08-29 10:30 | NUR ---
PT BACK FROM AMBULATING, IN RECLINER. RECONNECTED IVF. COMPLAINS OF A PAIN THAT IS THE RLQ, TENDER, TOLERABLE. INFORMED TO NOTIFY STAFF IF IT WORSENS. OFFERED WORM/COLD COMPRESS, DENIED AT THIS TIME.
[2024-08-29] MEDS ORDERED: HYDROmorphone HCL 2 MG TAB PO PRN (12:30)
[2024-08-29] MEDS ORDERED: IBUPROFEN 600 MG TAB PO PRN (12:30)
--- NOTE | 2024-08-29 13:59 | NUR ---
PATIENT AMBULATED 2 LAPS IN HALLWAY INDEPENDENTLY. PATIENT NOW BACK IN ROOM SITTING IN CHAIR. VITALS AND I&O'S DONE AND CHARTED. CALL LIGHT IN REACH. NO FURTHER NEEDS AT THIS TIME.
--- NOTE | 2024-08-29 14:54 | NUR ---
REMOVED SURGICAL DRESSING OVER MIDLINE, PER YENNIFER. STERI STRIPS ARE CDI. DENIES ANY DISCOMFORT AT THIS TIME. REMIANS IN RECLINER AND CALL LIGHT IN REACH.
--- NOTE | 2024-08-29 16:32 | NUR ---
PT AMBULATING HALLWAY AT THIS TIME, INDEPENDENTLY.
--- NOTE | 2024-08-29 18:00 | NUR ---
PT TOLERATED FULL LIQUID DINNER. SALINE LOCKED AT THIS TIME PER YENNIFER ORDER.
--- NOTE | 2024-08-29 18:12 | NUR ---
PT IN BATHROOM, WAS ABLE TO HAVE A BOWEL MOVEMENT, DARK LOOSE. PAIN IN THE ABD DISCRIBES IT A BURNING SENSATION. WILL ADMINISTER PRN MEDICATION.
--- NOTE | 2024-08-29 18:19 | NUR ---
PATIENT SITTING UP IN BED WATCHING TV AT THIS TIME. VITALS AND I&O'S DONE AND CHARTED. RN IN ROOM. CALL LIGHT IN REACH. NO FURTHER NEEDS AT THIS TIME.
--- NOTE | 2024-08-29 20:39 | NUR ---
Patient awake in bed watching tv, no distress. Patient reports abdominal pain, 7/10 rating per pt report. Patient denies nausea. Bowel tones x4 quadrants, last bm today. Snack provided to patient at this time. Patient reports she is having abdominal gas pains, encouraged pt to walk frequently. No needs at this time. Vital signs stable.
--- NOTE | 2024-08-29 21:00 | NUR ---
Patient ambulating in hallway, tolerating well.
--- NOTE | 2024-08-29 21:05 | NUR ---
CALL LIGHT ANSWERED. SBA TO RESTROOM FOR VOID. pt NOW AMBULATING IN HALLWAY INDEPENDENTLY.
--- NOTE | 2024-08-29 21:15 | NUR ---
pt AMBULATES TWO LAPS, BACK IN BED. SCDS ON. ICE WATER REFILLED. CALL LIGHT IN REACH.
[2024-08-30] VITALS (10 sets, daily range): BP systolic 112–132; BP diastolic 68–81
--- NOTE | 2024-08-30 | NUR ---
Patient resting in bed, eyes closed, respirations even and non labored.
--- NOTE | 2024-08-30 01:30 | NUR ---
INTO CHECK ON PATIENT. PATIENT CURRENTLY SLEEPING. REGULAR RATE AND RESPIRATIONS NOTED.
--- NOTE | 2024-08-30 03:07 | NUR ---
INTO CHECK PRAKASH DRAIN. SLIGHT DRAINAGE BUT NOT ENOUGH TO TURN LIGHTS ON AND FULLY WAKE PATIENT UP. PATIENT REQUEST A WARM BLANKET FOR HER ABDOMEN. SHE IS SORE. PATIENT FEELS WARMTH HELPS BETTER THEN ICE. PATIENT DENIES ANY OTHER CARES AT THIS TIME.
--- NOTE | 2024-08-30 05:00 | NUR ---
REPORT RECEIVED FROM HAILEY OWEN AND CARE ASSUMED OF PT.
--- NOTE | 2024-08-30 05:40 | NUR ---
IN TO CHECK ON PT AND DO VS. SHE DENIES NEEDS AT THIS TIME, CALL LIGHT IN REACH.
--- NOTE | 2024-08-30 07:25 | NUR ---
RECIEVED SHIFT REPORT FROM LEXIE LIRA. PT IS AWAKE USING THE VANNESA DWYER CNA IN ROOM TO ASSIST WITH ANY NEEDS. DISCUSSED WITH PT CONTINUE TO WALK THE HALLS, AND THIS RN WILL TALK TO CNAS ABOUT A SHOWER AFTER BREAKFAST. NO NEEDS AT THIS TIME.
--- NOTE | 2024-08-30 08:40 | NUR ---
PATIENT IN CHAIR AT THIS TIME. GAS METER READER ASSISTED PATIENT INTO SHOWER AND THEN BACK TO CHAIR. PATIENT WAS PROVIDED WITH NEW GOWN. CALL LIGHT WITHIN REACH, NO FURTHER NEEDS AT THIS TIME.
--- NOTE | 2024-08-30 09:45 | NUR ---
UR CLINICAL REVIEW: 2 MN FOR VERSALUS-PER CENTRAL COMMUNICATIONS SPECIALIST MEETS CRITERIA FOR INPT STAY POST COLECTOMY MEDICARE INPT 08/27/24 @ 0747 ORDER MATCHES REG NO AUTH NEEDED PER MEDICARE GUIDELINES DISCHARGE TO HOME WHEN STABLE.
--- NOTE | 2024-08-30 09:51 | NUR ---
PATIENT IN CHAIR AT THIS TIME. ROLL TESTER CHARTED VITALS AND I&O'S. CALL LIGHT WITHIN REACH, NO FURTHER NEEDS AT THIS TIME.
--- NOTE | 2024-08-30 10:00 | NUR ---
Spoke with Bessie. She plans on dc tomorrow. She states her spouse with stay with her for two days as these are her days off. They live in a manufactured home with 4 steps. Pt denies issues getting in or out of her home. She lives with her spouse. She has a walker and shower chair. She does not use the walker. She states she has neighbors on both sides and they will assist her when her spouse is off. She denies financial issues or safety concerns. [place] Advance directive forms given to pt for her and her spouse.
--- NOTE | 2024-08-30 10:41 | NUR ---
PT NOT AVAILABLE FOR VISIT. PROVIDED PRAYER.
--- NOTE | 2024-08-30 11:49 | NUR ---
PT AMBULATED HALLWAYS X2, INDENDENTLY.
--- NOTE | 2024-08-30 12:35 | NUR ---
PATIENT IN CHAIR AT THIS TIME. MULTIPLE DRUM SANDER CHARTED HOURLY ROUNDS. CALL LIGHT WITHIN REACH, NO FURTHER NEEDS AT THIS TIME.
--- NOTE | 2024-08-30 13:19 | NUR ---
PT CALLED FROM RESTROOM. HAD SMALL AMT BLOOD IN SMALL STOOL, RED IN TOILET NOT BLACK OR DARK.
--- NOTE | 2024-08-30 14:05 | NUR ---
PATIENT IN CHAIR AT THIS TIME. SENIOR TECHNICAL SUPPORT ANALYST CHARTED VITALS AND I&O'S. CALL LIGHT WITHIN REACH, NO FURTHER NEEDS AT THIS TIME.
--- NOTE | 2024-08-30 18:29 | NUR ---
PATIENT IN CHAIR AT THIS TIME. POLE MAKER CHARTED VITALS AND I&O'S. CALL LIGHT WITHIN REACH, NO FURTHER NEEDS AT THIS TIME.
--- NOTE | 2024-08-30 19:36 | NUR ---
REPORT RECEIVED FROM DAY SHIFT RN. PT LYING IN BED ALERT AND ORIENTED. ASSISTED TO REPOSITION. NO FURTHER NEEDS. WHITE BOARD UPDATED. CALL LIGHT IN REACH.
--- NOTE | 2024-08-30 21:39 | NUR ---
Completed head-to-toe assessment and vitals. PRN Tylenol given by primary RN. Pt ambulating independently in hallway. Call light in reach of bed
--- NOTE | 2024-08-30 23:58 | NUR ---
PT RESTING INBED WITH EYES CLOSED. RESPIRATIONS EVEN. CALL LIGHT IN REACH.
--- NOTE | 2024-08-31 01:43 | NUR ---
PT LYING IN BED RESTING WITH EYES CLOSED. RESPIRATIONS EVEN. CALL LIGHT IN REACH.
--- NOTE | 2024-08-31 04:02 | NUR ---
PT RESTING IN BED WITH EYES CLOSED. RESPIRATIONS EVEN. CALL LIGHT IN REACH.
[2024-08-31 05:40] VITALS: BP 113/73
--- NOTE | 2024-08-31 05:59 | NUR ---
PT RESTING IN BED WITH EYES CLOSED. AWAKENS EASILY. UP TO BR TO VOID AND HAVE SMALL LIQUID BM. NO BLOOD NOTED. VS AND I&O OBTAINED. PT REPORTS ABD PAIN 01/06. PRN FOR PAIN AND WARM COMPRESS PROVIDED. ASSESSMENT COMPLETE. NO FURTHER NEEDS. CALL LIGHT IN REACH.
--- NOTE | 2024-08-31 08:50 | NUR ---
PATIENT IN BED AT THIS TIME. LIMITED RADIOLOGY TECHNICIAN WENT INTO PATIENTS ROOM FOR HOURYL ROUNDS. CALL LIGHT WITHIN REACH, NO FURTHER NEEDS AT THIS TIME.
--- NOTE | 2024-08-31 09:12 | PATH ---
[facility] [address], [place] [address] Signed SPECIMEN(S): A SEGMENT OF SIGMOID AND PORTION OF RECTUM SPECIMEN SOURCE: A. SEGMENT OF SIGMOID AND PORTION OF RECTUM CLINICAL HISTORY: History recurrent diverticulitis. FINAL PATHOLOGIC DIAGNOSIS: Colon, sigmoid and rectum, resection: - Colonic mucosa with diverticulosis and diverticulitis - 2 reactive lymph nodes - Surgical margins appear viable BRP MICROSCOPIC EXAMINATION: Histologic sections of all submitted blocks are examined by light microscopy. These findings, together with the gross examination, support the pathologic diagnosis. GROSS DESCRIPTION: The specimen, labeled and designated "Cristhian Parrish, " and designated on the requisition "segment of sigmoid and portion of rectum," is received in formalin and consists of one unoriented segment of large bowel that is 15 cm in length and has an average diameter of 4.5 cm. The specimen has been previously opened. The serosal surfaces pink is smooth with focal areas of congestion. The mucosal surfaces pink and finely granular with the usual folding pattern. One area of induration is present and is surrounded by several diverticula. Serially sectioning reveals multiple diverticula no perforations are grossly identified. The bowel wall ranges in thickness from 0.9 cm up to 1.6 cm. Two possible lymph nodes are grossly identified measuring up to 0.6 cm in greatest dimension. Trench Digger sections are submitted in five cassettes. Cassette Summary: (A1-A2) resection margins, shave (A3) diverticula in area of induration (A4) additional diverticula (A5) two possible lymph nodes, submitted whole FB (under the direct supervision of a pathologist) PATIENT NAME: SHELDON PARRISH PATHOLOGY DATE OF : 68 REPORT #: [id number] PHYSICIAN: DEEPIKA MASSEY PCP: JACQUELINE PETERSON PA-C REPORT IS CONFIDENTIAL AND NOT TO BE RELEASED WITHOUT AUTHORIZATION [facility] [address], [place] [address] Signed The Gross Description was prepared using a voice recognition system. The report was reviewed for accuracy; however, sound-alike word errors, addition and/or deletions may occur. If there is any question about this report, please contact Client Services. ADDITIONAL NOTES: Immunohistochemical and/or in situ hybridization studies if performed in this case included appropriate positive controls that reacted as expected. This test was developed and its performance characteristics determined by [facility] It has not been cleared or approved by the U.S. Food and Drug Administration. The FDA has determined that such clearance or approval is not necessary. This test is used for clinical purposes. It should not be regarded as investigational or for research. [facility] is certified under the Clinical Laboratory Improvement Amendments of 1988 (CLIA) as qualified to perform high complexity clinical laboratory testing. PERFORMING LABORATORY: Technical component was performed by [facility] [address] [place] [id number] (CLIA# [id number]). Professional interpretation was performed by [facility], [address] [place] [address] (CLIA#: [id number]). Diagnostician: Amrit Harley MD Pathologist Electronically Signed 08/31/2024 Copies: ~ PATIENT NAME: SHELDON PARRISH PATHOLOGY DATE OF : 68 REPORT #: [id number] PHYSICIAN: DEEPIKA PATHOLOGY PCP: JACQUELINE PETERSON PA-C REPORT IS CONFIDENTIAL AND NOT TO BE RELEASED WITHOUT AUTHORIZATION
[2024-08-31 09:34] VITALS: BP 111/62
--- NOTE | 2024-08-31 09:37 | NUR ---
PATIENT IN CHAIR AT THIS TIME. BENEFITS ADMINISTRATOR CHARTED VITALS AND I&O'S. CALL LIGHT WITHIN REACH, NO FURTHER NEEDS AT THIS TIME.
--- NOTE | 2024-08-31 09:45 | NUR ---
VISITED DURING SPIRITUAL CARE ROUNDS. PT IN OVERALL GOOD SPIRITS, LOOKING FORWARD TO IMMINENT DISCHARGE, TALKED OF [employer], FAMILY SUPPORT. MAST MAKER PROVIDED SUPPORTIVE PRESENCE, HOSPITALITY, PRAYER, FACILITATED INTERACTION WITH THERAPY ANIMAL. PT EXPRESSED GRATITUDE.
--- NOTE | 2024-08-31 09:45 | NUR ---
Spoke with Bessie. She plans on dc to home today with her spouse. She denies any needs.
--- NOTE | 2024-08-31 11:04 | NUR ---
Patient ambulating in hallway, tolerating well.
[2024-08-31] MEDS ORDERED: IBUPROFEN600 MG PO (11:25)
[2024-08-31] MEDS ORDERED: ACETAMINOPHEN500 MG PO (11:25)
[2024-08-31] MEDS ORDERED: OXYCODONE HCL5 MG PO (11:26)
--- NOTE | 2024-08-31 17:24 | DS ---
[facility] [address], [place] [address] Signed ADMISSION DATE: 08/27/2024 DISCHARGE DATE: 08/31/2024 REASON FOR ADMISSION: Chronic recurrent diverticulitis for sigmoid resection. HISTORY: This 54-year-old white woman is a patient of Rhina Gonzalez and also Dr. Bienvenido Thomas. She has had chronic recurrent bouts of left lower abdominal pain with acute diverticulitis. She recently underwent colonoscopy by me confirming diverticulosis and showing no evidence of stricture or neoplasm. Given her chronic recurrent bouts of diverticulitis related to sigmoid diverticular disease, she has been offered and accepts sigmoid resection. PERTINENT PHYSICAL EXAMINATION: GENERAL: Pleasant white woman in no acute distress. CHEST: Clear. HEART: Regular without murmur. ABDOMEN: Obese, but soft. EXTREMITIES: Show no clubbing, cyanosis, or edema. She had no palpable mass. HOSPITAL COURSE: On August 27, 2024, she underwent sigmoid resection with a side-to-end coloproctostomy. She had adhesions in the low pelvis to normal-appearing adnexal structures and uterus. The left ureter was identified and unharmed. Anastomosis was tension free. Her postoperative course was rather unremarkable. She was begun on a liquid diet immediately postoperatively and carried through for 24 hours ultimately advancing to a full liquid and ultimately a regular diet. By day of discharge, she was ambulating well, tolerating a regular diet. Has had normal bowel movements and wound is healing well. She was instructed upon discharge to avoid lifting more than 20 pounds for the next four weeks and she is to ambulate on a daily basis. DISCHARGE MEDICATIONS: 1. Ibuprofen 600 mg p.o. q.6 hours as needed for pain, #60. 2. Tylenol 500 mg two tablets p.o. q.6 hours as needed for pain, #60, no refill. 3. Oxycodone 5 mg 1 to 2 q.3 hours as needed for pain, #10, no refill. She will continue her usual home medications including clonidine 0.1 mg p.o. b.i.d. 4. Zonisamide 50 mg three tabs p.o. at bedtime. 5. Butalbital acetaminophen 50 mg/300 mg tablet as needed for migraine, one to two doses per week. 6. Biotin 5 mg p.o. daily. Electronically Signed By: SAVANNAH DE OLIVEIRA MD 08/31/24 1724 PATIENT NAME: SHELDON READ DISCHARGE SUMMARY DATE OF : 68 REPORT #: [id number] PHYSICIAN: SAVANNAH DE OLIVEIRA MD PCP: RHINA GONZALEZ PA-C REPORT IS CONFIDENTIAL AND NOT TO BE RELEASED WITHOUT AUTHORIZATION [facility] [address] [place] [id number] Signed 7. Tramadol 50 mg p.o. t.i.d. as needed for pain. 8. Zofran 8 mg rapid tab oral three times a day as needed for nausea. 9. Carafate 1 g p.o. q.i.d. as needed. 10. Emgality 120 mg/mL injection subcutaneously monthly on the 15th day of the month. 11. Mirtazapine 7.5 mg tablet p.o. at bedtime. 12. Multivitamin one p.o. daily. 13. Omeprazole 40 mg p.o. daily. 14. [place]-3 fatty acids one tablet p.o. daily. 15. Vitamin D 25 mcg, 1000 units p.o. daily. DISCHARGE DIAGNOSES: 1. Chronic recurrent sigmoid diverticulitis. 2. Status post sigmoid resection with side-to-end coloproctostomy and mobilization of splenic flexure, August 27, 2024. 3. Gastroesophageal reflux. 4. Chronic pain with nerve stimulator in place of spine. 5. Allergy to sulfa, penicillin, topiramate. FOLLOWUP PLAN: She will return to see me in approximately four weeks. She will return to the ongoing care of KIRTI Amado as well as needed. MD NINO Campbell/ANKUR /[id number] cc: Rhina Gonzalez PA-C Copies: RHINA GONZALEZ PA-C ~ Electronically Signed By: SAVANNAH DE OLIVEIRA MD 08/31/24 1724 PATIENT NAME: SHELDON READ DISCHARGE SUMMARY DATE OF : 68 REPORT #: [id number] PHYSICIAN: SAVANNAH DE OLIVEIRA MD PCP: RHINA GONZALEZ PA-C REPORT IS CONFIDENTIAL AND NOT TO BE RELEASED WITHOUT AUTHORIZATION
== END 2024-08-31 12:30 | disposition home or self-care (01) | DRG 331 ==
LOC: MS 08-27 07:47 → DSVR 08-27 07:47 → MS 08-27 09:00
PROVIDERS: ADMIT Surgery; ATTEND Surgery
PROC: 0DTP0ZZ Resection of Rectum, Open Approach (ICD-10-PCS; 2024-08-27)
PROC: 0DBN0ZZ Excision of Sigmoid Colon, Open Approach (ICD-10-PCS; principal; 2024-08-27 09:00)
DX: K57.32 Diverticulitis of large intestine without perforation or abscess without bleeding (principal); Z88.2 Allergy status to sulfonamides; Z88.0 Allergy status to penicillin; Z88.8 Allergy status to other drugs, medicaments and biological substances; K21.9 Gastro-esophageal reflux disease without esophagitis; G89.29 Other chronic pain; Z79.899 Other long term (current) drug therapy; R33.9 Retention of urine, unspecified
CPT/HCPCS: 00840; 36415; 76942; 80048; 85025; 88307; 94762; A9270; J0131; J0690; J1100; J1171; J1644; J1885; J2003; J2270; J2405; J2704; J2795; J3010; J3475; J3490; J7121

== ENCOUNTER 2024-08-24 09:23 | Day surgery (SDC) | payer MEDICARE, OTHER ==
[~2024-08-24] VITALS: Ht 165.1 cm; Wt 90.9 kg
[~2024-08-24 09:23] MED LIST changes: +CARAFATE1 GM PO; +DICYCLOMINE HCL20 MG PO; +EMGALITY120 MG/1 M SUB-Q; +IBLOOD GLUCOSE TEST STRIP 1 EA TEST VI PRN; +LACTATED RINGER'S 1,000 ML IV SCH; +LIDOCAINE HCL 1% 5 ML SDV INJ ONE; +MIDAZOLAM HCL 5 MG/5 ML VIAL IV PRN; +ONE DAILY WOME1 EAC1 PO; +fentaNYL citrate 100 MCG/2 ML VIAL IV PRN
[2024-08-24 09:32] VITALS: BP 128/83
[2024-08-24] MEDS ORDERED: fentaNYL citrate 100 MCG/2 ML VIAL ONE (10:23)
[2024-08-24] MEDS ORDERED: MIDAZOLAM HCL 5 MG/5 ML VIAL ONE (10:23)
--- NOTE | 2024-08-24 11:21 | NUR ---
08/24/24 1121 Sheets,Giselle 1110 PT ARRIVED ON 3L VIA NC, PT WAKES EASILY TO VERBAL STIMULI AND DENEIS CONCERNS. RESP EVEN AND UNLABORED. PT ENCOURAGED TO PASS GAS NEEDED.
[2024-08-24 11:54] VITALS: BP 128/81
--- NOTE | 2024-08-25 10:06 | OR ---
[facility] [address] [place], [place] [address] Signed DATE OF OPERATION: 08/24/2024 SURGEON: Savannah De Oliveira MD PREOPERATIVE DIAGNOSIS: Chronic recurrent sigmoid diverticulitis. POSTOPERATIVE DIAGNOSIS: Sigmoid diverticulosis and scattered diverticula, proximal; no evidence of polyps or neoplasm. PROCEDURE: Total colonoscopy to cecum. ANESTHESIA: Intravenous sedation, fentanyl 100 mcg and Versed 5 mg. INDICATIONS FOR THE PROCEDURE: This 54-year-old white woman is a patient of Rhina Gonzalez and Bienvenido Thomas. She has had chronic recurrent bouts of sigmoid diverticulitis requiring hospitalization and outpatient therapy as well. She is scheduled for planned resection in the near term (Friday this week). She is here to undergo colonoscopy to assure there are no more proximal lesions of note, specifically cancer or polyps. She understands the risk of colonoscopy including but not limited to bleeding, infection, and perforation. FINDINGS: The prep was excellent. Complete colonoscopy was undertaken to the cecum. She had numerous diverticula of the sigmoid, but no actual stricture. There were scattered diverticula more proximally as well. She had no other abnormalities. DESCRIPTION OF PROCEDURE: The patient was brought to the endoscopy suite and placed in the lateral decubitus position given intravenous sedation to the point of slurred speech and nystagmus. Digital rectal examination was normal. An Olympus video colonoscope was passed in the rectum and manipulated throughout the colon noting numerous diverticula of the sigmoid and left colon. Scope was ultimately advanced to the cecum. The scope was then withdrawn and examination throughout showed no sign of polyps or neoplasm, only diverticula as previously described. The scope was withdrawn and retroflexed view undertaken showing no sign of abnormality. She was taken Electronically Signed By: SAVANNAH DE OLIVEIRA MD 08/25/24 1006 PATIENT NAME: SHELDON READ OPERATIVE REPORT DATE OF : 68 REPORT #: [id number] PHYSICIAN: SAVANNAH DE OLIVEIRA MD PCP: RHINA GONZALEZ PA-C REPORT IS CONFIDENTIAL AND NOT TO BE RELEASED WITHOUT AUTHORIZATION [facility] [address] [place], [place] [address] Signed to the recovery room at conclusion, having suffered no complication. CONCLUDING DIAGNOSIS: Diverticulosis with chronic recurrent sigmoid diverticulitis. PLAN: Sigmoid resection planned for this week on Friday. She will maintain a liquid diet and oral antibiotics preoperatively the day before resection. MD NINO Campbell/MODL /[id number] cc: MARA Benjamin PA-C Copies: RHINA GONZALEZ PA-C ~ Electronically Signed By: SAVANNAH DE OLIVEIRA MD 08/25/24 1006 PATIENT NAME: SHELDON READ OPERATIVE REPORT DATE OF : [birth year] REPORT #: [id number] PHYSICIAN: SAVANNAH DE OLIVEIRA MD PCP: RHINA GONZALEZ PA-C REPORT IS CONFIDENTIAL AND NOT TO BE RELEASED WITHOUT AUTHORIZATION
== END 2024-08-24 12:18 | disposition home or self-care (01) ==
LOC: DS 09:23
PROVIDERS: ATTEND Surgery
PROC: 0DJD8ZZ Inspection of Lower Intestinal Tract, Via Natural or Artificial Opening Endoscopic (ICD-10-PCS; principal; 2024-08-24 09:45)
DX: K57.32 Diverticulitis of large intestine without perforation or abscess without bleeding (principal); F41.9 Anxiety disorder, unspecified; Z88.0 Allergy status to penicillin; Z88.2 Allergy status to sulfonamides; Z88.8 Allergy status to other drugs, medicaments and biological substances; Z98.51 Tubal ligation status; Z79.899 Other long term (current) drug therapy
CPT/HCPCS: 99153; G0500; J2250; J3010; J7121